=== PATIENT | female | born 1985 | race Caucasian/White ===

== ENCOUNTER 2017-01-15 12:54 | Inpatient (IN) ==
[2017-01-15 13:31] LABS: MANUAL DIFF NEEDED? NO
[2017-01-15 13:33] LABS: BASO% 0.2 % (0.0-0.8); EOS# 0.04 X1000 (0.0-0.7); EOS% 0.2 % (0.0-10.0); HEMATOCRIT 43.9 % (37.0-47.0); IMM GRAN# 0.04 X1000 (0.0-0.04); IMM GRAN% 0.2 % (0.0-0.5); LYMPH# 1.73 X1000 (1.2-3.4); LYMPH% 10.5 % (20.5-51.1); MCH 27.5 PG (27-31); MCHC 34.2 g/dL (33-37); MCV 80.6 FL (81-99); MONO# 2.76 X1000 (0.11-0.59); MONO% 16.8 % (1.7-9.3); MPV 9.7 FL (7.4-10.4); NEUT% 72.1 % (42.2-75.2); PLT 440 X1000 (130-400); RBC 5.45 XMIL (4.2-5.4)
[2017-01-15 13:52] LABS: ALBUMIN 4.6 g/dL (3.5-5.0); CALCIUM 9.7 mg/dL (8.8-10.2); POTASSIUM 3.4 mmol/L (3.5-5.1); TOTAL BILIRUBIN 0.4 mg/dL (0.20-1.00)
[2017-01-15 13:56] LABS: BILIRUBIN URINE 1+ (NEGATIVE); BLOOD URINE 4+ (NEGATIVE); CLARITY VERY CLOUDY (CLEAR); COLOR YELLOW; LEUKOCYTES URINE 1+ (NEGATIVE); NITRITE URINE POSITIVE (NEGATIVE); SP GRAVITY URINE 1.025; UROBILINOGEN URINE NORMAL
[2017-01-15 13:57] LABS: URINE SOURCE CLEAN CATCH
[2017-01-15 13:59] LABS: URINE CAST GRANULAR PRESENT /LPF; URINE RBC 20-40 /HPF (<10)
[2017-01-15 14:02] LABS: URINE CULTURE PL NEEDED? YES; URINE EPITHELIAL CELLS <10 /HPF (<10); URINE WBC <10 /HPF (<10)
[2017-01-15] MEDS ORDERED: ZOFRAN IV ONE (14:07)
[2017-01-15] MEDS ORDERED: NS 1,000 ML IV ONE ×5 (14:07→18:40)
--- NOTE | 2017-01-15 14:14 | PROVIDER DOCUMENTATION ---
HPI-General Adult - General Chief Complaint: N/V/D Stated Complaint: V/D,WEAKNESS Time Seen by Provider: 01/15/17 13:59 Source: patient, family Allergies/Adverse Reactions: Patient Allergies Allergy/AdvReac Type Severity Reaction Status Date / Time No Known Allergies Allergy Verified 05/16/16 14:17 Home Medications: Home Medication List Medication Instructions Recorded Confirmed Last Taken Type Escitalopram Oxalate [Escitalopram 20 mg PO DAILY 01/15/17 01/15/17 01/13/17 History Oxalate] - History of Present Illness -Gen Adult Nature of Presenting Problems: Pt reports 4 day h/o n/v/d after eating possible contaminated meat. This is the only thing she can think of that could have made her sick. She describes multiple episodes of n/v/d per day. Has been unable to hold anything down. Denies fever. Does complain of weakness and dizziness with standing. Location of Pain/Injury: reports: abdomen Pain Radiation: reports: no radiation Quality of Pain: reports: aching, cramping, pressure, sharp, stabbing Severity: reports: moderate Onset/Duration: reports: 4 days ago Timing: reports: constant, getting worse Context/Activities at Onset: reports: possible bad food Modifying Factors: improves with: nothing Associated Symptoms: reports: diarrhea, dizziness, nausea, vomiting. denies: fever/chills, shortness of breath Similar Symptoms Previously?: No Recently seen or treated by another doctor?: No Review of Systems - Adult - REVIEW OF SYSTEMS - ADULT Constitutional: denies: chills, fever Cardiovascular: denies: chest pain Respiratory: denies: shortness of breath, wheezing Gastrointestinal: reports: abdominal pain, diarrhea, nausea, vomiting Genitourinary: reports: dysuria All Other Systems: Reviewed and Negative Past History - Adult - PAST MEDICAL HISTORY-ADULT Review of Records: reports: Old Records Reviewed, Nursing Assessment Review, Medications Reviewed, Social history reviewed & non-contributory. - PRIOR SURGERIES/PROCEDURES Surgical/Procedure History: reports: - IMMUNIZATION STATUS Childhood Immunizations: See Nurse Assessment Flu Vaccine: See Nurse Assessment - SOCIAL HISTORY Smoking: non-smoker Living Situation: family Physical Exam-General - PHYSICAL EXAM-ADULT Initial Vital Signs Reviewed: Yes - CONSTITUTIONAL General Appearance: appears well, alert, no apparent distress - EYES Eyes: PERRL/EOMI, pink conjunctivae - HEAD, EARS, NOSE, MOUTH & THROAT HENMT: normocephalic/atraumatic, moist mucous membranes - NECK Neck: non-tender, full range of motion, supple - RESPIRATORY Respiratory: chest non-tender, lungs clear, normal breath sounds - CARDIOVASCULAR Cardiovascular: regular rate, rhythm, no edema - GASTROINTESTINAL (ABDOMEN) Abdominal Exam: soft, tenderness (generalized). negative: normal bowel sounds ( hyperactive bowel sounds), distended, guarding, rigid, rebound, hernia, mass - MUSCULOSKELETAL Back Exam: normal inspection, no CVA tenderness, no vertebral tenderness Extremity: normal gait, normal inspection - SKIN Integumentary: normal turgor, warm/dry. negative: normal color (pale) - NEUROLOGIC Neurologic: grossly normal, no motor/sensory deficits - PSYCHIATRIC Psych/Mental Status: normal thought content, normal thought process Progress - PLAN OF CARE/RESULTS Progress/Plan/Lab Results: Vital Signs - 8 hr 01/15/17 13:00 01/15/17 13:33 Temperature 98.4 F Pulse Rate 105 H Pulse Rate [Sitting] 107 H Pulse Rate [Supine] 102 H Respiratory Rate 18 Blood Pressure 125/74 Blood Pressure [Sitting] 112/81 Blood Pressure [Supine] 120/79 O2 Sat by Pulse Oximetry 100 Laboratory Results - last 24 hr 01/15/17 01/15/17 01/15/17 13:15 13:25 13:25 WBC 16.46 H RBC 5.45 H Hgb 15.0 Hct 43.9 MCV 80.6 L MCH 27.5 MCHC 34.2 RDW Std Deviation 14.5 Plt Count 440 H MPV 9.7 Immature Gran % (Auto) 0.2 Neut % (Auto) 72.1 Lymph % (Auto) 10.5 L Divide % (Auto) 16.8 H Eos % (Auto) 0.2 Baso % (Auto) 0.2 Immature Gran # (Auto) 0.04 Neut # (Auto) 11.86 H Lymph # (Auto) 1.73 Divide # (Auto) 2.76 H Eos # (Auto) 0.04 Baso # (Auto) 0.03 Sodium 138 Potassium 3.4 L Chloride 95 L Carbon Dioxide 19 L Anion Gap 25 BUN 44 H Creatinine 5.7 H Estimated GFR/1.73 m2 9 BUN/Creatinine Ratio 8 Glucose 133 H Calculated Osmolality 289 Calcium 9.7 Total Bilirubin 0.40 AST 18 ALT 16 Alkaline Phosphatase 79 Total Protein 10.0 H Albumin 4.6 Globulin 5.0 Albumin/Globulin Ratio 1.0 Amylase 78 Lipase 57 Urine Source CLEAN CATCH Urine Color YELLOW Urine Clarity VERY CLOUDY A Urine pH 7.0 Ur Specific [place] 1.025 Urine Protein 3+(500 mg/dL) A Urine Ketones TRACE Urine Blood 4+ Urine Nitrite POSITIVE A Urine Bilirubin 1+ A Urine Urobilinogen NORMAL Urine Microscopic RBC 20-40 A Urine WBC 1+ A Urine Microscopic WBC <10 Ur Epithelial Cells <10 Urine Bacteria NEGATIVE Urine Casts GRANULAR PRESENT Urine Glucose TRACE(50 mg/dL) A Orders Category Date Time Status Saline Loc DIRECTED Care 01/15/17 13:07 Active NPO Diet 01/15/17 13:07 Active AMYLASE [CHEM] Stat Lab 01/15/17 13:25 Completed CBC WITH ELECTRONIC DIFF [HEME] Stat Lab 01/15/17 13:25 Completed COMPREHENSIVE METABOLIC PANEL [CHEM] Stat Lab 01/15/17 13:25 Completed LIPASE [CHEM] Stat Lab 01/15/17 13:[address] W/POSS RFLX CULT [URINALYSIS] Stat Lab 01/15/17 13:15 Completed URINE CULTURE [RM] Routine Lab 01/15/17 14:02 Ordered 0.9% Sodium Chloride Inj [Ns] 1,000 ml Med 01/15/17 14:07 Active IV 999 mls/hr Ondansetron [Zofran] Med 01/15/17 14:07 Discontinued 4 mg IV NOW ONE Result Diagrams: 01/15/17 13:25 01/15/17 13:25 - CONSULTS/PCP/HOSPITALIST Notification #1 *Consult/PCP/Hospitalist*: Hood Time Discussed: 14:10 Consult Disposition: Admit Departure - Departure Date of Disposition Decision: 01/15/17 Time of Disposition Decision: 14:15 DIAGNOSIS: Vomiting and diarrhea, Dehydration UTI (urinary tract infection) Qualifiers: Urinary tract infection type: acute cystitis Hematuria presence: without hematuria Qualified Code(s): N30.00 - Acute cystitis without hematuria Food poisoning Qualifiers: Encounter type: initial encounter Injury intent: accidental or unintentional Qualified Code(s): T62.91XA - Toxic effect of unspecified noxious substance eaten as food, accidental (unintentional), initial encounter Disposition: ADMITTED INPATIENT 09 Certified Medical Emergency: Emergent Condition: Good Referrals and Follow-Ups: Erica Holguin [Primary Care Provider] - - Critical Care Note This patient required my direct & personal management of CC.: No Attestation - Physician/ AYDEN Attestation Patient care was provided by Advanced Practice Provider:: Yes Advanced Practice Provider:: Tsering Marie Advanced Practice Provider documentation review:: The Mid-level provider documentation, treatment plan and medical decision making was reviewed by the physician who agrees with all treatment and medical decision making by the MLP. The physician spent face to face time with patient:: No Advanced Practice Provider documentation review:: Supervising physician onsite and consulted in the evaluation and care of this patient. The physician did not have a face to face encounter with the patient.
[2017-01-15] MEDS: ZOFRAN IV PRN ×2 (17:07→21:36)
--- NOTE | 2017-01-15 17:59 | HISTORY AND PHYSICAL ---
CHIEF COMPLAINT: Nausea, vomiting, diarrhea. HISTORY OF PRESENT ILLNESS: This is a 31-year-old female with a history of migraine headaches who presented to the emergency room complaining of nausea, vomiting and diarrhea since Wednesday night. She states that during the night she had periods of feeling hot and then freezing inside. She had rigors a time or 2 through the night. She had generalized aches off and on over this time. She never took her temperature. She has had vomiting and diarrhea. She has been unable to hold anything down. She states even a drink of water makes her vomit. Over the last 24 hours she has become weak, dizzy when standing up or walking too far. She has had abdominal cramps pretty much through this whole time. She denies any black or bloody vomitus or stools although she did have guaiac-positive vomitus in the ER. She was found to have a white count of 16 with a BUN of 44, creatinine of 5.7. She was given a L of IV fluids along with Zofran in the emergency room and she is being admitted for further evaluation and treatment. PAST MEDICAL HISTORY: Migraine headaches. PAST SURGICAL HISTORY: . SOCIAL HISTORY: She denies alcohol, tobacco, or illicit drug use. ALLERGIES: No known drug allergies. HOME MEDICATIONS: Topamax REVIEW OF SYSTEMS: A 14 point review of systems was discussed with patient with pertinent positives as stated in HPI. She denied chest pain, palpitations, syncope, shortness of breath, PND, orthopnea, black or bloody stools, black or bloody vomitus, hematuria, dysuria, frequency, urgency. PHYSICAL EXAMINATION: GENERAL: This is a 31-year-old female who is lying in the bed, in no distress. VITAL SIGNS: Blood pressure is 130/70, heart rate of 70, respirations are 18, temperature is 97.6 degrees oral, room air saturation of 100%. HEENT: Head is normocephalic, atraumatic. Pupils equal, round, reactive to light. EOMs are intact. Sclerae anicteric. Mucous membranes are dry. NECK: Supple. Trachea midline. CARDIOVASCULAR: Regular rate and rhythm. S1, S2 appreciated. PULMONARY: Breath sounds are clear with no increased work of breathing noted. GASTROINTESTINAL: Abdomen is soft, nondistended, with bowel sounds in all 4 quadrants. BACK: No CVAT. No spine tenderness. MUSCULOSKELETAL: Good range of motion of joints. EXTREMITIES: No clubbing, cyanosis, or edema. Calves are nontender. Pulses are palpable x4. NEUROLOGIC: She is alert and oriented x3. Cranial nerves 2-12 grossly intact. DIAGNOSTICS: WBC is 16.4 with hemoglobin 15, hematocrit 43.9, and platelets of 440,000. Sodium is 138, potassium 3.4, BUN 44, creatinine 5.7 with a glucose of 133, gastric occult is positive. Urinalysis reveals positive nitrites, 20-40 microscopic red blood cells, less than 10 white blood cells. ASSESSMENT: 1. Vomiting, diarrhea. 2. Dehydration. 3. Acute kidney injury presumably from #1. 4. Urinary tract infection. 5. Leukocytosis. PLAN: The patient will be admitted to the hospital. She will remain NPO. IV hydration with 1 liter NS bolus followed by 150ml/hr recheck BMP at 6 o'clock and all labs in am Urine culture is pending. We will give Rocephin IV at present and further antibiotics will depend on culture results. We will give Zofran for nausea. Further treatment pending hospital course. Dictated by SHIRA Faye for Vitaly Bobo MD cc: SHIRA Faye MD [facility]
[2017-01-15 18:23] LABS: ALBUMIN 3.8 g/dL (3.5-5.0); CALCIUM 8.1 mg/dL (8.8-10.2); POTASSIUM 3.3 mmol/L (3.5-5.1); TOTAL BILIRUBIN 0.2 mg/dL (0.20-1.00); TOTAL PROTEIN 7.8 g/dL (6.3-8.3)
[2017-01-15] MEDS: ROCEPHIN 1 GM/NS 1 GM/50 ML IVPB IV SCH (18:24)
[2017-01-15] MEDS: TYLENOL PO PRN (18:35)
[2017-01-15] MEDS: NS 1,000 ML IV SCH (20:28)
[2017-01-16] MEDS: NS 1,000 ML IV SCH ×4 (03:22→23:41)
[2017-01-16 06:34] LABS: ALBUMIN 3.2 g/dL (3.5-5.0); CALCIUM 7.8 mg/dL (8.8-10.2); MAGNESIUM 2.4 mg/dL (1.5-2.7); TOTAL BILIRUBIN 0.2 mg/dL (0.20-1.00); TOTAL PROTEIN 6.4 g/dL (6.3-8.3)
[2017-01-16 06:45] LABS: HEMATOCRIT 31.6 % (37.0-47.0); HEMOGLOBIN 10.2 g/dL (12.0-16.0); MCH 26.7 PG (27-31); MCHC 32.3 g/dL (33-37); MCV 82.7 FL (81-99); MPV 9.7 FL (7.4-10.4); RBC 3.82 XMIL (4.2-5.4)
--- NOTE | 2017-01-16 10:45 | PROGRESS NOTE ---
DATE: 01/16/2017 SUBJECTIVE: The patient notes she is feeling a little bit better. Still tired and fatigued. Still a little bit nauseated, but is stating that she feels like she is ready to start drinking. Still having some diarrhea. Denies any blood in her stool. OBJECTIVE: Vital Signs Reviewed: Temperature 97 degrees, pulse 68, respiratory rate 18, BP 113/62, satting 100% on room air. General: Patient is awake, alert, currently in no respiratory distress. Pleasant to talk with. Neck: Supple. CV: Regular rate. Chest: Relatively clear. Abdomen: Soft, nondistended. Positive bowel sounds. Extremities: Moves all extremities. Neurologic: No focal changes. Skin: Warm and dry. No rashes. ASSESSMENT: 1. Nausea and vomiting, resolved. 2. Diarrhea, improved. 3. Dehydration, improved. 4. Acute kidney injury. Creatinine is actually down from 5.5 to 4.0. We will continue to follow. 5. Hypokalemia, will replace. PLAN: Replace her potassium. Continue IV fluids. Advance her diet. Further orders as needed. We will continue to follow. Recheck in the a.m. cc: Vitaly Bobo MD
[2017-01-16] MEDS: TYLENOL PO PRN (15:49)
[2017-01-16] MEDS: ROCEPHIN 1 GM/NS 1 GM/50 ML IVPB IV SCH (17:07)
[2017-01-16] MEDS: ZOFRAN IV PRN (19:18)
[2017-01-17 06:08] LABS: HEMATOCRIT 30.7 % (37.0-47.0); HEMOGLOBIN 9.9 g/dL (12.0-16.0); MCH 26.8 PG (27-31); MCHC 32.2 g/dL (33-37); MPV 9.3 FL (7.4-10.4); RBC 3.7 XMIL (4.2-5.4)
[2017-01-17] MEDS: NS 1,000 ML IV SCH (06:20)
[2017-01-17 06:47] LABS: ALBUMIN 2.8 g/dL (3.5-5.0); CALCIUM 7.8 mg/dL (8.8-10.2); MAGNESIUM 2.2 mg/dL (1.5-2.7); TOTAL BILIRUBIN 0.2 mg/dL (0.20-1.00)
[2017-01-17] MEDS: POTASSIUM CHLORIDE 20 MEQ/SWI 20 MEQ/100 ML IVPB IV SCH ×2 (07:55→10:56)
[2017-01-17] MEDS ORDERED: KLOR-CON PO ONE ×2 (10:06→16:04)
[2017-01-17] MEDS ORDERED: NS 1,000 ML IV SCH (10:06)
[2017-01-17] MEDS ORDERED: CULTURELLE PO SCH (10:15)
--- NOTE | 2017-01-17 10:45 | PROGRESS NOTE ---
DATE: 01/17/2017 SUBJECTIVE: The patient states that she is feeling better. She has some nausea. She has started eating some solid food. In fact, she ate bites of bread sticks last night without any nausea or vomiting. She did state she had 1 diarrheal stool through the night and 1 this morning, although she states it is more formed, and she has no abdominal pain with this. OBJECTIVE: Vital Signs: Blood pressure is 107/47 with a heart rate of 64, respirations are 16, temperature is 98.7 degrees with room air saturations of 99% to 100%. General: She is awake and alert, sitting on the side of the bed in no distress. HEENT: Head is normocephalic, atraumatic. Pupils equal, round, reactive to light. EOMs are intact. Sclerae anicteric. Mucous membranes are moist. Neck: Supple. Trachea midline. Cardiovascular: Regular rate and rhythm. S1, S2 appreciated. Pulmonary: Breath sounds are clear with no increased work of breathing noted. Gastrointestinal: Abdomen is soft, nontender, nondistended with bowel sounds in all 4 quadrants. Extremities: No clubbing, cyanosis, or edema. Calves are nontender. Pulses are palpable x4. Neurologic: She is alert and oriented x3 with cranial nerves II through XII grossly intact. Skin: Warm and dry with no rashes or lesions noted. DIAGNOSTIC DATA: WBC is 7.5 with hemoglobin 9.9, hematocrit 30.7, and platelets of 277. Sodium is 142, potassium 2.4, BUN 22, creatinine 1.8 with a glucose of 100. Urine culture revealed no pathogenic growth. ASSESSMENT AND PLAN: 1. Hypokalemia. Will replete as appropriate, and follow labs. 2. Nausea and vomiting. This is resolved. 3. Diarrhea. This is improved. 4. Dehydration, improved. 5. Acute kidney injury. Creatinine has come down from 5.5 to 1.8. Will continue to follow. 6. I have encouraged her to get up and walk out in the lam, be up in the chair for meals, increase her activity. Further treatments pending hospital course. Dictated by SHIRA Faye for Vitaly Bobo MD cc: SHIRA Faye MD
[2017-01-17 11:05] LABS: HEMATOCRIT 34.9 % (37.0-47.0); HEMOGLOBIN 11.5 g/dL (12.0-16.0); MCH 27.3 PG (27-31); MCV 82.9 FL (81-99); MPV 9.8 FL (7.4-10.4); RBC 4.21 XMIL (4.2-5.4)
[2017-01-17 11:25] LABS: CALCIUM 8.4 mg/dL (8.8-10.2); POTASSIUM 2.9 mmol/L (3.5-5.1)
[2017-01-17 16:00] LABS: CALCIUM 8.5 mg/dL (8.8-10.2); POTASSIUM 2.9 mmol/L (3.5-5.1)
[2017-01-17 16:16] VITALS: BP 121/71
[2017-01-18 00:26] LABS: POTASSIUM 2.4 mmol/L (3.5-5.1)
--- NOTE | 2017-01-23 12:44 | DISCHARGE SUMMARY ---
ADMISSION DATE: 01/15/2017 DISCHARGE DATE: 01/17/2017 DISCHARGE DIAGNOSES: 1. Nausea and vomiting, resolved. 2. Diarrhea, resolved. 3. Acute renal failure with a serum creatinine of 5.7 on admit, 1.8 on discharge. 4. Acute volume depletion secondary to nausea and vomiting. 5. Urinary tract infection. 6. Leukocytosis, likely reactionary. CONSULTATIONS: None. PROCEDURES PERFORMED: None. BRIEF HOSPITAL COURSE: The patient is a 31-year-old female who was admitted as noted in the HPI and treated in the usual fashion. Thankfully, she had an uneventful hospital course. On discharge, she was awake and alert. She was feeling much better. She will be discharged home. She is having no symptoms. She is able to eat a regular diet, ambulate in the lam without any difficulty. DISPOSITION: It is felt that the patient's creatinine, although tremendously better from admission, should continue to improve but was not completely back to baseline. I discussed with her no anti-inflammatories. She needs to follow up with primary care physician in 1 week to recheck her creatinine and to adjust medications if needed. She states she understands and will be discharged home. No changes were made in her Topamax medication on discharge. cc: Vitaly Bobo MD
== END 2017-01-17 18:52 | disposition home or self-care (01) ==
LOC: P.MEDSURG 12:54 → P.ED 12:54 → OBSVTOIN 15:41
PROVIDERS: ADMIT Family Medicine; ATTEND Family Medicine